=== PATIENT | female | born 1980 | race Caucasian/White ===

== ENCOUNTER → 2017-02-25 | Outpatient (CLI) | payer OTHER ==
--- NOTE | 2017-02-26 14:52 | XR ---
EXAMINATION TYPE: XR knee complete LT DATE OF EXAM: 02/25/2017 5:04 PM COMPARISON: NONE HISTORY: Left knee pain around patella TECHNIQUE: 3 view left knee FINDINGS: There is mild narrowing of the medial lateral compartment joint space. Tiny lateral femoral condylar spur is present. No joint effusion is evident. Patellofemoral joint space appears preserved . There is some superficial soft tissue swelling over the infrapatellar region. Clinical correlation is recommended. IMPRESSION: 1. Infrapatellar superficial soft tissue swelling. 2. No joint effusion. 3. Mild degenerative joint changes
== END ==
LOC: RADXRYALE 16:52
PROVIDERS: ATTEND Physician Assistant Medical
DX: M17.12 Unilateral primary osteoarthritis, left knee (principal); M76.891 Other specified enthesopathies of right lower limb, excluding foot

== ENCOUNTER 2019-10-16 16:48 | Emergency (ER) | payer OTHER ==
[2019-10-16 17:01] VITALS: TEMP 98.1
[2019-10-16] MEDS ORDERED: SODIUM CHLORIDE 0.9% 1,000 ML IV STA (17:34)
[2019-10-16] MEDS ORDERED: KETOROLAC 30 MG/ML 1 ML VIAL IVP STA (17:34)
--- NOTE | 2019-10-16 17:55 | XR ---
EXAMINATION TYPE: XR chest 2V DATE OF EXAM: 10/16/2019 COMPARISON: NONE HISTORY: Chest pain TECHNIQUE: Frontal and lateral views of the chest are obtained. FINDINGS: Heart and mediastinum are normal. Lungs are clear. Diaphragm is normal. Bony thorax appear s normal. IMPRESSION: Normal chest.
--- NOTE | 2019-10-16 17:57 | ED ---
Chest Pain HPI - General Chief Complaint: Chest Pain Stated Complaint: Chest pain Time Seen by Provider: 10/16/19 17:24 Source: patient, RN notes reviewed, old records reviewed Mode of arrival: ambulatory Limitations: no limitations - History of Present Illness Initial Comments: Patient is a 39-year-old female. She presents emergency department today with chief complaint of onset of chest pain starting at 5am. Patient reports it seems to be pleuritic in nature. She states that it's worse if she lays down. She reports she has a history of smoker. She denies any associated chest chills or her nausea vomiting or arm numbness or tingling. Patient states that the pain seems to be helped with leaning forward. - Related Data Allergies Allergy/AdvReac Type Severity Reaction Status Date / Time No Known Allergies Allergy Verified 10/16/19 17:02 Review of Systems ROS Statement: Those systems with pertinent positive or pertinent negative responses have been documented in the HPI. ROS Other: All systems not noted in ROS Statement are negative. EKG Findings - EKG Comments: EKG Findings:: EKG performed at 1737 shows normal sinus rhythm normal EKG. Ventricular rate of 62 bpm. NH interval is 118 ms. QRS duration is 84 ms. QT QTc is 402/408 ms. Past Medical History Past Medical History: No Reported History History of Any Multi-Drug Resistant Organisms: None Reported Past Surgical History: Section, Orthopedic Surgery Additional Past Surgical History / Comment(s): sinus surgery Past Psychological History: Anxiety Smoking Status: Current some day smoker Past Alcohol Use History: None Reported Past Drug Use History: Marijuana General Exam - General Exam Comments Initial Comments: Alert and oriented well-appearing 39-year-old female. No distress. Limitations: no limitations General appearance: alert, in no apparent distress Head exam: Present: atraumatic, normocephalic, normal inspection Eye exam: Present: normal appearance, PERRL, EOMI. Absent: scleral icterus, conjunctival injection, periorbital swelling ENT exam: Present: normal exam, normal oropharynx, mucous membranes moist, TM's normal bilaterally Neck exam: Present: normal inspection. Absent: tenderness, meningismus, lymphadenopathy Respiratory exam: Present: normal lung sounds bilaterally, other (chest wall tenderness over sternum ). Absent: respiratory distress, wheezes, rales, rhonchi, stridor Cardiovascular Exam: Present: regular rate, normal rhythm, normal heart sounds. Absent: systolic murmur, diastolic murmur, rubs, gallop, clicks GI/Abdominal exam: Present: soft, normal bowel sounds. Absent: distended, tenderness, guarding, rebound, rigid Extremities exam: Present: normal inspection Back exam: Present: normal inspection Neurological exam: Present: alert, oriented X3, CN II-XII intact Psychiatric exam: Present: normal affect, normal mood Skin exam: Present: warm, dry, intact, normal color. Absent: rash Course Vital Signs 10/16/19 10/16/19 10/16/19 16:58 17:42 20:00 Temperature 98.1 F Pulse Rate 83 69 68 Respiratory 19 18 16 Rate Blood Pressure 151/90 140/99 137/87 O2 Sat by Pulse 99 100 99 Oximetry 10/16/19 20:01 Temperature 98.1 F Pulse Rate 68 Respiratory 16 Rate Blood Pressure 137/87 O2 Sat by Pulse 99 Oximetry Chest Pain MDM - MDM 39-year-old female presents emergency department today for chief complaint of chest pain. Onset starting at 5 AM. Patient reports that started it is worse with laying back. Patient states that she has tenderness over the chest wall. Patient's EKG is negative for any acute process. Chest x-ray shows no acute bony process. She did have a mildly elevated d-dimer. CT was completed to rule out PE. There is no signs of PE. Some minimal lung scarring. She is a smoker. Discussed the importance of quitting. I discussed with the length of time the patient's pain occurred unlikely to be any cardiac issue is that she's had normal EKG and her symptoms have been greater than 15 hours. Patient agrees. I discussed the seems likely costochondritis and she can follow-up with her primary care doctor. All questions were answered return parameters were discussed. Disposition Clinical Impression: Acute costochondritis Disposition: ADMITTED IP TO THIS HOSP Condition: Stable Instructions (If sedation given, give patient instructions): Costochondritis (ED) Additional Instructions: Patient advised to stop smoking. Motrin or tylenol for pain. Prompt follow-up with your primary care physician. Return to emergency department if any alarming signs or symptoms occur. Is patient prescribed a controlled substance at d/c from ED?: No Referrals: Vish Ojeda DO [Primary Care Provider] - 1-2 days Time of Disposition: 19:53
[2019-10-16 18:02] LABS: Basophils # (A) 0.1 k/uL (0-0.2); Basophils % (A) 1 %; Eosinophils # (A) 0.5 k/uL (0-0.7); Eosinophils % (A) 7 %; HCT 41.1 % (34.0-46.0); Lymphocytes # (A) 2.3 k/uL (1.0-4.8); Lymphocytes % (A) 33 %; MCH 29.2 pg (25.0-35.0); MCHC 34.2 g/dL (31.0-37.0); MCV 85.6 fL (80.0-100.0); Monocytes # (A) 0.4 k/uL (0-1.0); Monocytes % (A) 5 %; Neutrophils # (A) 3.7 k/uL (1.3-7.7); Neutrophils % (A) 53 %; Platelet Count 246 k/uL (150-450); RBC 4.81 m/uL (3.80-5.40); RDW 13.4 % (11.5-15.5); WBC 6.9 k/uL (3.8-10.6)
[2019-10-16 18:16] LABS: INR 0.9 (<1.2); Prothrombin Time 9.9 sec (9.0-12.0)
[2019-10-16 18:24] LABS: ALT 25 U/L (9-52); AST 37 U/L (14-36); African American GFR (CKD) >90 (>60 ml/min/1.73 sqM); Albumin 4.2 g/dL (3.5-5.0); Alkaline Phosphatase 104 U/L (38-126); Anion Gap 7 mmol/L; Blood Urea Nitrogen 15 mg/dL (7-17); Calcium 9.3 mg/dL (8.4-10.2); Carbon Dioxide 23 mmol/L (22-30); Chloride 110 mmol/L (98-107); Glucose 85 mg/dL (74-99); Magnesium 1.9 mg/dL (1.6-2.3); Non-African American GFR(CKD) 85 (>60 ml/min/1.73 sqM); Potassium 4.1 mmol/L (3.5-5.1); Sodium 140 mmol/L (137-145); Total Bilirubin 0.5 mg/dL (0.2-1.3); Total Protein 7.2 g/dL (6.3-8.2)
[2019-10-16 18:40] LABS: D-Dimer 0.64 mg/L FEU (<0.60)
--- NOTE | 2019-10-16 19:31 | CT ---
EXAMINATION TYPE: CT chest angio for PE DATE OF EXAM: 10/16/2019 COMPARISON: None HISTORY: Chest pain and elevated d-dimer. CT DLP: 598.7 mGycm Automated exposure control for dose reduction was used. CONTRAST: Performed with IV Contrast, patient injected with 100ml mL of Isovue 370. There are 3-D post processed images. The lungs are clear of infiltrate. There is no evidence of a pulmonary mass. There is minimal pleural thickening in the left posterior lung field. There are no hilar masses. There is no mediastinal radha opathy. Thoracic aorta appears normal. There is no aneurysm or dissection. There is no pericardial ef fusion. There is no pleural fluid. Upper abdominal soft tissues are intact. There is normal contrast opacification of the pulmonary arteries. There are no filling defects. Heart size is normal. The bony thorax is intact. IMPRESSION: No evidence of pulmonary embolism. Minimal left posterior pleural thickening probably related to scarring. Normal heart.
[2019-10-16 20:00] VITALS: BP 137/87; PULSE 68; RESP 16
--- NOTE | 2019-10-19 05:30 | CDI ---
Dear Kayla Montiel PA-C: Please do addendum whether Patient's disposition is "AIP" OR "HOME" as in MDM was given "I discussed the seems like costochondritis and she can follow-up with her primary care doctor. All questions were answered return parameters were discussed." which sounding like patient was discharged to "HOME." Thank you, Almaz Carbajal, Judo Teacher. If you have any questions, please contact [employer] at [phone]. OSVALDO
--- NOTE | 2019-10-23 00:40 | CDI ---
Dear Kayla Montiel PA-C: Please do addendum length/duration of the discussion on quit smoking as in MDM given "She is a smoker. Discussed the importance of quitting. I discussed with the length of time." Thank you, Almaz Carbajal, City Letter Carrier. If you have any questions, please contact Business Integration Manager at [phone]. PARISHD
== END 2019-10-16 20:08 | disposition home or self-care (01) ==
LOC: EC 16:48
DX: M94.0 Chondrocostal junction syndrome [Tietze] (principal); R79.1 Abnormal coagulation profile; R91.8 Other nonspecific abnormal finding of lung field; Z71.6 Tobacco abuse counseling; F17.200 Nicotine dependence, unspecified, uncomplicated
CPT/HCPCS: 99285; 96374; 96361 ×2; 99406; 36415; 93005; 85379; 83880; 80053; 83735; 84484; 85025; 85610; 85730; 71046; 71275; J1885; Q9967